=== PATIENT | female | born 1940 | race Caucasian/White ===

== ENCOUNTER → 2019-01-31 | Outpatient (CLI) | payer MEDICARE ==
--- NOTE | 2019-01-31 11:41 | KCIC ---
EXAM: Abdomen sonogram. HISTORY: Pain. TECHNIQUE: Sonographic imaging of the abdomen was performed. COMPARISON: None. FINDINGS: The liver is normal in size. No focal hepatic lesion is seen. The common bile duct is normal in caliber. There is cholelithiasis. The gallbladder wall is normal in thickness. The right kidney measures 9.0 cm [id number] and the left kidney measures 10.3 cm [id number]. There is right renal cortical lobulation and thinning likely due to scarring. The pancreas, aorta and inferior cava are not well seen due to bowel gas. The spleen is normal in size. IMPRESSION: 1. Cholelithiasis. 2. Partially obscured midline structures due to bowel gas. 3. Suspected right renal cortical scarring and mild atrophy. Electronically signed by: Milena Aleman MD (01/31/2019 11:38 AM) [id number]
== END | disposition home or self-care (01) ==
LOC: KCIC US 07:40
PROVIDERS: ATTEND Internal Medicine Gastroenterology
DX: K80.20 Calculus of gallbladder without cholecystitis without obstruction (principal)
CPT/HCPCS: 76700

== ENCOUNTER → 2019-02-19 | Outpatient (CLI) | payer MEDICARE ==
--- NOTE | 2019-02-19 13:16 | KCIC ---
EXAM: Head CT without contrast. HISTORY: Alzheimer's. Gait disorder. TECHNIQUE: Computed tomographic images of the head were obtained without contrast. *One or more of the following individualized dose reduction techniques were utilized for this examination: 1. Automated exposure control. 2. Adjustment of the mA and/or kV according to patient size. 3. Use of iterative reconstruction technique. COMPARISON: None. FINDINGS: There is no acute or subacute extra-axial or intraparenchymal hemorrhage. There is no mass effect or midline shift. There is no hydrocephalus. There are areas of decreased attenuation within the cerebral white matter, nonspecific and likely related to chronic small vessel disease. There is evidence of bilateral maxillary antrostomy/uncinectomy surgery. There is near complete opacification of the right aspect of the sphenoid sinus due to mucosal thickening. There is mild bilateral ethmoid sinus mucosal thickening. The orbits and mastoid air cells are unremarkable. No suspicious calvarial lesion is seen. IMPRESSION: 1. No acute intracranial finding. 2. Nonspecific hypodensity within the cerebral white matter, likely due to chronic small vessel disease. Electronically signed by: Milena Aleman MD (02/19/2019 1:13 PM) [place] [id number]
== END | disposition home or self-care (01) ==
LOC: KCIC CT 12:42
PROVIDERS: ATTEND Psychiatry & Neurology Neurology with Special Qualifications in Child Neurology
DX: J34.89 Other specified disorders of nose and nasal sinuses (principal); R90.82 White matter disease, unspecified; G30.1 Alzheimer's disease with late onset; R26.9 Unspecified abnormalities of gait and mobility
CPT/HCPCS: 70450

== ENCOUNTER 2021-07-23 10:14 | Emergency (ER) | payer MEDICARE ==
[~2021-07-23] VITALS: Ht 162.6 cm; Wt 50.5 kg
[~2021-07-23 10:14] MED LIST: AMLO-186 PO; DONE10TA7 PO; HYDR12.575 PO; MEMA10TA PO; METO-247 PO; OMEP20CA16 PO
--- NOTE | 2021-07-23 10:18 | PHYS DOC ---
Past Medical History Past Medical History: Hypertension Past Surgical History: Other Additional Past Surgical Histo: L shoulder surgery Smoking Status: Never Smoker Alcohol Use: None Drug Use: None Adult General Chief Complaint Chief Complaint: WEAKNESS/GENERALIZED HPI HPI Patient is a 81 year old female who presents with generalized weakness. Patient normally lives at home with her domestic partner of 32 years. He is at the bedside and provides most of the history. Patient had CVA in 2019. Since then, she has had some mild issues with generalized weakness and dizziness causing her some gait instability and balance problems. That said, she can normally ambulate without assistance at baseline. Over the last couple weeks however she has become more weak generally. She has had decreased appetite as well and has been eating and drinking very small amounts. Over the last 7 days, she reportedly has not eaten or drank anything for lack of appetite. She has b ecome too weak to get around her house safely and has to rely on leaning on objects and continues to be unstable. She was evaluated by cardiology via teleconference recently and it was arranged for her to have home health. Today, a home health nurse came to her house. This was the initial visit. Patient was recommended to come to the emergency department for evaluation. Ms. Lopez is very pleasant and awake and alert. She does answer questions appropriately. She denies chest pain, shortness of breath, abdominal pain. She states she simply has no appetite but she is able to eat and drink without difficulty when she attempts to do so. Denies abdominal pain. She does complain of pain in the bilateral wrists due to known history of chronic arthritis. Pain is worse in the right wrist. She did not have any new traumatic injury to the wrist. No falls. Denies urinary complaints. No nausea or vomiting. Review of Systems Review of Systems Constitutional: Denies fever or chills, otherwise as documented in HPI Eyes: Denies change in visual acuity, redness, or eye pain HENT: Denies nasal congestion or sore throat Respiratory: Denies cough or shortness of breath Cardiovascular: No additional information not addressed in HPI GI: Denies abdominal pain, nausea, vomiting, : Denies dysuria or hematuria Musculoskeletal: Denies back pain or joint pain Integument: Denies rash Neurologic: Denies headache All other systems were reviewed and found to be within normal limits, except as documented in this note. Current Medications Current Medications Current Medications Medications (Trade) Dose Ordered Sig/Favio Start Time Stop Time Status Last Admin Dose Admin Azithromycin (Zithromax) 500 mg 1X ONCE 07/23/21 13:30 07/23/21 13:31 DC 07/23/21 15:06 500 MG Ceftriaxone Sodium (Rocephin) 1 gm 1X ONCE 07/23/21 13:30 07/23/21 13:31 DC 07/23/21 15:06 1 GM Dexamethasone Sodium Phosphate (Decadron) 4 mg 1X ONCE 07/23/21 13:45 07/23/21 13:46 DC 07/23/21 15:05 4 MG Sodium Chloride 1,000 ml @ 1,000 mls/hr 1X ONCE 07/23/21 12:45 07/23/21 13:44 DC 07/23/21 12:33 1,000 MLS/HR Allergies Allergies Allergies Coded Allergies Type Severity Reaction Last Updated Verified codeine Allergy Intermediate rash 07/23/21 Yes Physical Exam Physical Exam Constitutional: Well developed, well nourished, no acute distress, non-toxic appearance HENT: bilateral external ears normal, oropharynx dry Eyes: PERRLA, EOMI, conjunctiva normal, no discharge Neck: Normal range of motion, no tenderness, supple, no JVD. no carotid bruits Cardiovascular:Heart rate regular rhythm, 3/6 harsh, JESUS ALBERTO heard loudest at the LSB Lungs & Thorax: Bilateral breath sounds clear to auscultation Abdomen: Bowel sounds normal, soft, no tenderness, no masses, no pulsatile masses. Skin: Warm, dry, no erythema, no rash. Extremities: Mild erythema and soft tissue swelling about the bilateral dorsal wrist with the right being worse than the left. Distal capillary refill normal. Sensation light touch normal. Neurologic: Alert and oriented X 3, normal motor function Psychologic: Affect normal Current Patient Data Vital Signs Vital Signs Date Time Temp Pulse Resp B/P (MAP) Pulse Ox O2 Delivery O2 Flow Rate FiO2 07/23/21 13:19 72 14 189/86 (120) 93 Room Air 07/23/21 10:15 97.9 97.9 Lab Values Laboratory Tests Test 07/23/21 11:15 07/23/21 11:29 07/23/21 14:58 White Blood Count 10.8 x10^3/uL (4.0-11.0) Red Blood Count 4.09 x10^6/uL (3.50-5.40) Hemoglobin 12.4 g/dL (12.0-15.5) Hematocrit 36.8 % (36.0-47.0) Mean Corpuscular Volume 90 fL (79-100) Mean Corpuscular Hemoglobin 30 pg (25-35) Mean Corpuscular Hemoglobin Concent 34 g/dL (31-37) Red Cell Distribution Width 14.5 % (11.5-14.5) Platelet Count 368 x10^3/uL (140-400) Neutrophils (%) (Auto) 81 % (31-73) H Lymphocytes (%) (Auto) 8 % (24-48) L Monocytes (%) (Auto) 8 % (0-9) Eosinophils (%) (Auto) 2 % (0-3) Basophils (%) (Auto) 1 % (0-3) Neutrophils # (Auto) 8.7 x10^3/uL (1.8-7.7) H Lymphocytes # (Auto) 0.9 x10^3/uL (1.0-4.8) L Monocytes # (Auto) 0.9 x10^3/uL (0.0-1.1) Eosinophils # (Auto) 0.2 x10^3/uL (0.0-0.7) Basophils # (Auto) 0.1 x10^3/uL (0.0-0.2) Sodium Level 137 mmol/L (136-145) Potassium Level 3.4 mmol/L (3.5-5.1) L Chloride Level 100 mmol/L (98-107) Carbon Dioxide Level 25 mmol/L (21-32) Anion Gap 12 (6-14) Blood Urea Nitrogen 10 mg/dL (7-20) Creatinine 0.7 mg/dL (0.6-1.0) Estimated GFR (Cockcroft-Gault) 80.7 BUN/Creatinine Ratio 14 (6-20) Glucose Level 110 mg/dL (70-99) H Lactic Acid Level 1.0 mmol/L (0.4-2.0) Calcium Level 8.1 mg/dL (8.5-10.1) L Total Bilirubin 0.7 mg/dL (0.2-1.0) Aspartate Amino Transferase (AST) 50 U/L (15-37) H Alanine Aminotransferase (ALT) < 6 U/L (14-59) L Alkaline Phosphatase 102 U/L (46-116) Troponin I High Sensitivity 20 ng/L (4-50) Total Protein 7.0 g/dL (6.4-8.2) Albumin 2.2 g/dL (3.4-5.0) L Albumin/Globulin Ratio 0.5 (1.0-1.7) L Thyroid Stimulating Hormone (TSH) 5.029 uIU/mL (0.358-3.74) H Influenza Type A Antigen Positive (NEGATIVE) *A Influenza Type B Antigen Negative (NEGATIVE) SARS-CoV-2 Antigen (Rapid) Positive (NEGATIVE) *A Urine Collection Type Unknown Urine Color Judy Urine Clarity Turbid Urine pH 6.5 (<5.0-8.0) Urine Specific [place] 1.020 (1.000-1.030) Urine Protein 30 mg/dL (NEG-TRACE) Urine Glucose (UA) Negative mg/dL (NEG) Urine Ketones (Stick) Negative mg/dL (NEG) Urine Blood Negative (NEG) Urine Nitrite Negative (NEG) Urine Bilirubin Small (NEG) Urine Urobilinogen Dipstick 2.0 mg/dL (0.2 mg/dL) Urine Leukocyte Esterase Large (NEG) Urine RBC 0 /HPF (0-2) Urine WBC Tntc /HPF (0-4) Urine Bacteria Few /HPF (0-FEW) Laboratory Tests 07/23/21 11:15 Laboratory Tests 07/23/21 11:15 EKG EKG 11:05: poor quality EKG. Given this, appears NSR with no ST changes to suggest ischemia. Interpreted by ER physician. Patient has no CP. Radiology/Procedures Radiology/Procedures [] Course & Med Decision Making Course & Med Decision Making Pertinent Labs and Imaging studies reviewed. (See chart for details) Ms. Lopez is evaluated on arrival to her room she arrives today via EMS. HPI as documented above. She is overall nontoxic and in no acute distress. She does appear clinically dehydrated. We will give IV fluids today and do basic work-up to look for cause for her presentation. Her neurologic examination is normal and there are no subjective focal neurologic complaints or deficits. 13:15: Labs reviewed. Noted to be positive for COVID and influenza. CXR concerning for consolidative PNA. Rocephin ordered. Azithromycin. She has no oxygen requirement. Decadron ordered. 16:00: ED summary: Patient seen in the ER as above. During the ER course, she was aggressively hydrated. She felt much improved. Her x-ray was suspicious for pneumonia. She tested positive for both influenza and COVID. She did not have oxygen requirement however. She had good air movement in all higuera and no increased work of breathing. She also noted to have pyuria. No indication for admission to the hospital despite her work-up. She did not have leukocytosis. She was not septic. Her diagnoses are explained to her and all of her questions were answered. She was initially given Rocephin and started on azithromycin in the ER. After her urinalysis returned, decision was made to switch her to Levaquin over the next 7 days to cover both UTI and possible pneu monia although her lung findings are most likely viral. Placed on prednisone and Levaquin and discharged home. Strict return precautions discussed and she will come back to the ER for any new or severely worsening symptoms Dragon Disclaimer Dragon Disclaimer This electronic medical record was generated, in whole or in part, using a voice recognition dictation system. Departure Departure Impression: Primary Impression: Influenza A Additional Impressions: COVID-19 Urinary tract infection Pneumonia Disposition: HOME / SELF CARE / HOMELESS Condition: GOOD Referrals: BONNY MARINO MD (PCP) Patient Instructions: Pneumonia, Adult, Urinary Tract Infection Scripts Prednisone (PREDNISONE) 20 Mg Tablet 2 TAB PO DAILY, #4 TAB Prov: ALBERTO DOMINGUEZ DO 07/23/21 Levofloxacin (LEVOFLOXACIN) 500 Mg Tablet 1 TAB PO DAILY, #7 TAB Prov: ALBERTO DOMINGUEZ DO 07/23/21 Problem Qualifiers ALBERTO DOMINGUEZ DO Jul 23, 2021 10:18
[2021-07-23] MEDS ORDERED: IV NORMAL SALINE 1000ML BAG 1,000 ML IV ONE ×3 (11:00→12:45)
[2021-07-23 11:29] LABS: BASO # 0.1 x10^3/uL (0.0-0.2); BASO % 1 % (0-3); EOS # 0.2 x10^3/uL (0.0-0.7); EOS % 2 % (0-3); HEMATOCRIT 36.8 % (36.0-47.0); HEMOGLOBIN 12.4 g/dL (12.0-15.5); LYMPH # 0.9 x10^3/uL (1.0-4.8); LYMPH % 8 % (24-48); MEAN CORPUSCULAR HEMOGLOBIN 30 pg (25-35); MEAN CORPUSCULAR HGB CONC 34 g/dL (31-37); MEAN CORPUSCULAR VOLUME 90 fL (79-100); MONO # 0.9 x10^3/uL (0.0-1.1); MONO % 8 % (0-9); NEUT # 8.7 x10^3/uL (1.8-7.7); NEUT % 81 % (31-73); PLATELET COUNT 368 x10^3/uL (140-400); RED BLOOD COUNT 4.09 x10^6/uL (3.50-5.40); RED CELL DISTRIBUTION WIDTH 14.5 % (11.5-14.5); WHITE BLOOD COUNT 10.8 x10^3/uL (4.0-11.0)
[2021-07-23 11:37] LABS: ANION GAP 12 (6-14); BLOOD UREA NITROGEN 10 mg/dL (7-20); BUN/CREATININE RATIO 14 (6-20); CALCIUM 8.1 mg/dL (8.5-10.1); CARBON DIOXIDE 25 mmol/L (21-32); CHLORIDE 100 mmol/L (98-107); CREATININE 0.7 mg/dL (0.6-1.0); GFR 80.7; GLUCOSE 110 mg/dL (70-99); POTASSIUM 3.4 mmol/L (3.5-5.1); SODIUM 137 mmol/L (136-145)
[2021-07-23 11:43] LABS: ALBUMIN 2.2 g/dL (3.4-5.0); ALBUMIN/GLOBULIN RATIO 0.5 (1.0-1.7); ALK PHOS 102 U/L (46-116); ALT (SGPT) < 6 U/L (14-59); AST (SGOT) 50 U/L (15-37); TOTAL BILIRUBIN 0.7 mg/dL (0.2-1.0)
[2021-07-23 11:53] LABS: INFLUENZA B PATIENT NEGATIVE (NEGATIVE)
[2021-07-23 11:57] LABS: INFLUENZA A PATIENT POSITIVE (NEGATIVE)
--- NOTE | 2021-07-23 13:07 | RAD ---
EXAM: AP View of the chest DATE: 07/23/2021 12:35 PM INDICATION: Reason: weakness / Spl. Instructions: / History: COMPARISON: CT 05/29/2019 FINDINGS: Moderate cardiomegaly. Aorta calcifications are seen. Left lung base airspace opacities likely consol idative process such as pneumonia. Mild patchy opacities right mid lung and right lower lung. Biapica l pleural-based calcifications are seen. No pneumothorax. Trace left pleural effusion or pleural thickening. IMPRESSION: Left lung base and right mid lung and lower lung patchy airspace opacities likely consolidative proce ss such as pneumonia. Trace left pleural effusion or pleural thickening. Electronically signed by: Sp Stock MD (07/23/2021 1:04 PM) [place]
[2021-07-23] MEDS ORDERED: AZITHROMYCIN 250 MG TABLET. PO ONE (13:30)
[2021-07-23] MEDS ORDERED: cefTRIAXone IV Push 1 GM VIAL. IVP ONE (13:30)
[2021-07-23] MEDS ORDERED: DEXAMETHASONE SOD PHOS 4 MG/ML VIAL IVP ONE (13:45)
[2021-07-23 15:08] LABS: BILIRUBIN,URINE SMALL (NEG); CLARITY,URINE TURBID; COLOR,URINE AMBER; NITRITE,URINE NEGATIVE (NEG); PH,URINE 6.5 (<5.0-8.0); PROTEIN,URINE 30 mg/dL (NEG-TRACE)
[2021-07-23 15:14] LABS: BACTERIA,URINE FEW /HPF (0-FEW); RBC,URINE 0 /HPF (0-2); WBC,URINE TNTC /HPF (0-4)
[2021-07-23] MEDS ORDERED: PRED20TA PO (16:03)
[2021-07-23] MEDS ORDERED: LEVO500T9 PO (16:03)
[2021-07-23 17:51] VITALS: BP 174/81
--- NOTE | 2021-07-24 01:45 | EKG ---
[facility] [address] [place] [address] Test Date: 2021-07-23 Test Time: 11:00:18 Pat Name: SANTIAGO PIERRE Department: Room: Gender: F Planning Rn: : 1940 Requested By: ALBERTO DOMINGUEZ Order Number: [id number] Reading MD: Bryan James MD Measurements Intervals [place] Rate: 73 P: -65 CA: 172 QRS: 45 QRSD: 84 T: 75 QT: 394 QTc: 438 Interpretive Statements SINUS RHYTHM Electronically Signed On 07-25-2021 9:22:41 [employer] by Bryan James MD
== END 2021-07-23 18:02 | disposition home or self-care (01) ==
LOC: ER 10:14
DX: U07.1 COVID-19 (principal); J10.1 Influenza due to other identified influenza virus with other respiratory manifestations; J18.9 Pneumonia, unspecified organism; N39.0 Urinary tract infection, site not specified; I10 Essential (primary) hypertension; Z88.5 Allergy status to narcotic agent
CPT/HCPCS: 36415; 71045; 80053; 81001; 83605; 84443; 84484; 85025; 87428; 93005; 96361; 96374; 96375; 99285; J0696; J1100; J7030